=== PATIENT | female | born 1930 | race Caucasian/White ===

== ENCOUNTER 2016-10-18 07:30 | Day surgery (SDC) | payer MEDICARE, OTHER ==
[2014-03-13 17:23] VITALS: BMI 31.2
[2016-10-18] MEDS ORDERED: Lactated Ringer's 500 ML IV SCH (08:45)
[2016-10-18 09:00] LABS: INR 1.2
[2016-10-18] MEDS ORDERED: Propofol 10 mg/ml Inj (20 ML) ONE (09:01)
[2016-10-18] MEDS ORDERED: Lidocaine Hydrochloride 5 ML INJ ONE (09:02)
--- NOTE | 2016-10-18 09:09 | CP.SDSHP ---
Same Day Surgery H & P - History Proposed Procedure: colonoscopy Pre-Op Diagnosis: change in bowels. abdominal pain - Previous Medical/Surgical History Cardiac: Hypertension, Arrhythmia, Other (hyperlipidemia, atrial fibrillation, DVT/PE) Pulmonary: Other (DVT and possible PE 2009) Endocrine/Metabolic: Diabetes Misc: Other (PUD) Previous Surgical History: appendix. LIDIA/BSO - Allergies Allergies: Allergies No Known Allergies Allergy (Verified 10/18/16 07:52) - Physical Exam Vital Signs: Vital Signs 10/18/16 08:15 Temperature 97.0 F L Pulse Rate 80 Respiratory 20 Rate Blood Pressure 150/77 Mental Status: Alert & Oriented x3 Neuro: WNL Heart: Other (irreg-irreg) Lungs: WNL GI: WNL - {Optional Preform as Required} Abdomen: WNL Other Pertinent Findings: PT-INR- 1.2 off Warfarin for 4 days. - Impression Impression: change in bowels. abdominal pain Pt. Evaluated Today:Candidate for Anesthesia & Procedure: Yes - Date & Time Date: 10/18/16 Time: 09:09 Short Stay Discharge - Short Stay Discharge Admitting Diagnosis/Reason for Visit: CHANGE IN BOWEL HABIT, LOWER ABDOMINAL PAIN, CONST Disposition: HOME/ ROUTINE
[2016-10-18 09:46] VITALS: TEMP 96.9
[2016-10-18 10:13] VITALS: O2SAT 99
[2016-10-18 10:23] VITALS: BP 132/55; PULSE 66; RESP 16
== END 2016-10-18 10:22 | disposition home or self-care (01) ==
LOC: C.ENDO 07:30
PROVIDERS: ATTEND Internal Medicine Gastroenterology
DX: D12.7 Benign neoplasm of rectosigmoid junction (principal); K57.30 Diverticulosis of large intestine without perforation or abscess without bleeding; K64.1 Second degree hemorrhoids; R19.4 Change in bowel habit; R10.30 Lower abdominal pain, unspecified
CPT/HCPCS: 36415; 45380; 82948; 85610; 85730; 88305; J2704; J7120

== ENCOUNTER 2016-11-13 09:25 | Emergency (ER) | payer MEDICARE, OTHER ==
[2016-11-13 09:25] VITALS: BMI 31.2
[2016-11-13 09:29] VITALS: RESP 18
[2016-11-13] MEDS ORDERED: Sodium Chloride 0.9% 500 ML IV STA (09:48)
--- NOTE | 2016-11-13 09:48 | C.PDOC ---
History Of Present Illness 86 y/o female sent to ED by Dr Colindres for evaluation of worsening epigastric pain x1 month. Pt states pain is worse after eating. Last colonoscopy done October 18. Never had upper endoscopy. Pt with history of afib and currently on Coumadin. She currently denies fever, chills, chest pain, SOB, nausea, vomiting , diarrhea, back pain or any other complaints. Time Seen by Provider: 11/13/16 09:41 Chief Complaint (Nursing): Abdominal Pain History Per: Patient History/Exam Limitations: no limitations Onset/Duration Of Symptoms: Days Current Symptoms Are (Timing): Worse Context: Food Severity: Moderate Location Of Pain/Discomfort: Epigastric Radiation Of Pain To:: None Quality Of Discomfort: "Pain" Associated Symptoms: denies: Fever, Chills, Vomiting, Diarrhea, Back Pain, Chest Pain Exacerbating Factors: Food Recent travel outside of the [place]: No Past Medical History Reviewed: Historical Data, Nursing Documentation, Vital Signs Vital Signs: Last Vital Signs Temp 97.8 F 11/13/16 13:56 Pulse 88 11/13/16 13:56 Resp 18 11/13/16 13:56 BP 140/90 11/13/16 13:56 Pulse Ox 100 11/13/16 13:56 - Medical History PMH: Anxiety, Arthritis, Asthma, Atrial Fibrillation, CHF, COPD, Dementia, Depression, Diabetes, Fractures (RT WRIST), Gastritis, HTN, Hypercholesterolemia Surgical History: Cholecystectomy, Endoscopy, Pacemaker - [facility] Procedures VACCINATION NEC (02/18/14) Family History: States: Unknown Family Hx - Social History Hx Tobacco Use: No Hx Alcohol Use: No Hx Substance Use: No - Immunization History Hx Tetanus Toxoid Vaccination: No Hx Influenza Vaccination: No Hx Pneumococcal Vaccination: No Review Of Systems Except As Marked, All Systems Reviewed And Found Negative. Constitutional: Negative for: Fever, Chills Cardiovascular: Negative for: Chest Pain Respiratory: Negative for: Shortness of Breath Gastrointestinal: Positive for: Abdominal Pain. Negative for: Nausea, Vomiting , Diarrhea Musculoskeletal: Negative for: Back Pain Physical Exam - Physical Exam Appears: Non-toxic, No Acute Distress Skin: Warm, Dry, No Rash Head: Atraumatic, Normacephalic Oral Mucosa: Moist Neck: Normal, Normal ROM, Supple Chest: Symmetrical Cardiovascular: Rhythm Regular, No Murmur Respiratory: Normal Breath Sounds, No Rales, No Rhonchi, No Wheezing Gastrointestinal/Abdominal: Soft, Tenderness (epigastric), No Guarding, No Rebound Extremity: No Pedal Edema Extremity: Bilateral: Atraumatic Neurological/Psych: Oriented x3, Normal Speech, Normal Cognition ED Course And Treatment - Laboratory Results Result Diagrams: 11/13/16 11:33 11/13/16 11:33 ECG Rhythm: Atrial Fibrillation, Nonspecific Changes Rate From EC O2 Sat by Pulse Oximetry: 97 (room air) Pulse Ox Interpretation: Normal - CT Scan/US US abdomen Other Rad Studies (CT/US): Read By Radiologist, Radiology Report Reviewed CT/US Interpretation: Accession No. : [id number]. Patient Name / ID : MARLYN MEHTA / [id number]. Exam Date : 11/13/2016 10:22:44 ( Approved ). Study Comment : Sex / Age : F / 86Y. Creator : Dayana Harrison MD. Dictator : Dayana Harrison MD. Paper Sorter And Counter : Accounting Bookkeeper : Dayana Harrison MD. Approver2 : Report Date : 11/13/2016 11:13:01. My Comment : . HISTORY: epigastric pain. COMPARISON: None. TECHNIQUE: Grayscale imaging was performed. FINDINGS: LIVER: Measures 14.0 cm in length. Normal echogenicity of the liver parenchyma. No mass. No intrahepatic bile duct dilatation. GALLBLADDER: There are no gallstones, wall thickening or pericholecystic fluid. The sonographic Coelho's sign is negative. COMMON BILE DUCT: Measures 3.0 mm. No stones. No dilatation. PANCREAS: Unremarkable as visualized. No mass. No ductal dilatation. RIGHT KIDNEY: Measures 9.4 cm in length. Normal echogenicity. No calculus, mass, or hydronephrosis. There is a 1.8 x 1.6 x 1.6 cm simple cyst in the upper pole and 1.0 x 0.8 x 1.0 cm simple cyst in the lower pole. AORTA: No aneurysmal dilatation. IVC: Unremarkable. OTHER FINDINGS: None . IMPRESSION: No evidence of cholelithiasis or acute cholecystitis. Progress Note: Plan: labs, US abd, UA, fluids, pepcid. Reassess (Abdominal Pain): Patient is resting comfortably, abdomen remains soft, and patient is tolerating PO. Case was d/w patient's GI who will seen patient in his office. Patient feels comfortable going home. Patient will be discharged home. Disposition - Disposition Referrals: Hima Santillan MD [Staff Provider] - Disposition: HOME/ ROUTINE Disposition Time: 13:41 Condition: STABLE Additional Instructions: Follow up with your PMD and Service Station Cashier within 1-2 days. Return to ED if feel worse. Prescriptions: Nitrofurantoin Macrocrystals [Macrobid] 1 cap PO BID #14 cap Famotidine [Pepcid] 20 mg PO BID #20 tab Instructions: Epigastric Pain (ED) Print Language: CYPRIOT - Clinical Impression Clinical Impression: Epigastric pain - PA / REVERBERATORY FURNACE OPERATOR / Resident Statement MD/DO has reviewed & agrees with the documentation as recorded. - Scribe Statement The provider has reviewed the documentation as recorded by the Mj Guaman All medical record entries made by the Mj were at my direction and personally dictated by me. I have reviewed the chart and agree that the record accurately reflects my personal performance of the history, physical exam, medical decision making, and the department course for this patient. I have also personally directed, reviewed, and agree with the discharge instructions and disposition.
[2016-11-13] MEDS ORDERED: Sodium Chloride 0.9% 1,000 ML ONE (10:13)
[2016-11-13 10:43] LABS: SQUAMOUS EPITHIAL 1 /hpf (0-5); URINE BACTERIA RARE (<OCC); URINE BILIRUBIN NEGATIVE (NEGATIVE); URINE BLOOD NEGATIVE (NEGATIVE); URINE CLARITY Clear (Clear); URINE COLOR Yellow (YELLOW); URINE GLUCOSE (UA) NORMAL (Normal); URINE LEUKOCYTE ESTERASE 2+ Leu/uL (Negative); URINE NITRATE NEGATIVE (NEGATIVE); URINE PROTEIN NEGATIVE (NEGATIVE); URINE UROBILINOGEN NORMAL mg/dL (0.2-1.0)
--- NOTE | 2016-11-13 11:14 | US ---
HISTORY: epigastric pain COMPARISON: None. TECHNIQUE: Grayscale imaging was performed. FINDINGS: LIVER: Measures 14.0 cm in length. Normal echogenicity of the liver parenchyma. No mass. No intrahepatic bile duct dilatation. GALLBLADDER: There are no gallstones, wall thickening or pericholecystic fluid. The sonographic Coelho's sign is negative. COMMON BILE DUCT: Measures 3.0 mm. No stones. No dilatation. PANCREAS: Unremarkable as visualized. No mass. No ductal dilatation. RIGHT KIDNEY: Measures 9.4 cm in length. Normal echogenicity. No calculus, mass, or hydronephrosis. There is a 1.8 x 1.6 x 1.6 cm simple cyst in the upper pole and 1.0 x 0.8 x 1.0 cm simple cyst in the lower pole. AORTA: No aneurysmal dilatation. IVC: Unremarkable. OTHER FINDINGS: None . IMPRESSION: No evidence of cholelithiasis or acute cholecystitis.
[2016-11-13 11:43] LABS: BASO # 0.1 K/uL (0.0-0.2); BASO % 1.4 % (0.0-2.0); EOS # 0.3 K/uL (0.0-0.7); EOS % 3.3 % (0.0-4.0); HEMOGLOBIN 12.2 g/dL (11.0-16.0); LYMPH % 28.9 % (20.0-40.0); MEAN CELL VOLUME 92.6 fL (81.0-99.0); MEAN CORPUSCULAR HEMOGLOBIN 31.1 pg (27.0-31.0); MEAN CORPUSCULAR HGB CONC 33.6 g/dL (33.0-37.0); MEAN PLATELET VOLUME 10.1 fL (7.2-11.7); MONO # 0.5 K/uL (0.0-0.8); MONO % 4.6 % (0.0-10.0); NEUT # 6.4 K/uL (1.8-7.0); NEUT % 61.8 % (50.0-75.0); NRBC % 0.1 % (0.0-2.0); RBC 3.93 Mil/uL (3.80-5.20); RED CELL DISTRIBUTION WIDTH 16.1 % (11.5-14.5); WHITE BLOOD COUNT 10.3 K/uL (4.8-10.8)
[2016-11-13 11:49] LABS: AMYLASE 100 U/L (30-110); INR 1.7; LIPASE 85 U/L (23-300)
[2016-11-13 11:51] LABS: PROTHROMBIN TIME 19.9 SECONDS (9.7-12.2)
[2016-11-13 11:59] LABS: CK-MB 1.33 ng/mL (0.0-3.38)
[2016-11-13 12:22] LABS: ALBUMIN 4.1 g/dL (3.5-5.0)
[2016-11-13 12:24] LABS: GFR AFRICAN-AMERICAN > 60; GFR NON-AFRICAN AMERICAN > 60
[2016-11-13 12:25] LABS: ALB/GLOB RATIO 1.2 (1.0-2.1); ALT/SGPT 23 U/L (9-52); AST/SGOT 24 U/L (14-36); BLOOD UREA NITROGEN 11 mg/dL (7-17)
[2016-11-13 12:26] LABS: CALCIUM 9.1 mg/dl (8.6-10.4)
[2016-11-13 13:57] VITALS: BP 140/90; PULSE 88; TEMP 97.8
[2016-11-13 19:20] VITALS: O2SAT 97
--- NOTE | 2016-11-15 09:07 | CARD ---
APPROVED REPORT EKG Measurement Heart [id number] <Conclusion> Atrial fibrillation with a competing junctional pacemaker Nonspecific ST and T wave abnormality Abnormal ECG
== END 2016-11-13 13:56 | disposition home or self-care (01) ==
LOC: C.ER 09:25
DX: R10.13 Epigastric pain (principal); E11.9 Type 2 diabetes mellitus without complications; I10 Essential (primary) hypertension; I48.91 Unspecified atrial fibrillation; J44.9 Chronic obstructive pulmonary disease, unspecified; J45.909 Unspecified asthma, uncomplicated; E78.00 Pure hypercholesterolemia, unspecified
CPT/HCPCS: 76705; 80053; 81001; 82150; 82550; 82553; 82948; 83690; 84484; 85025; 85610; 85730; 96374; 99285; J7040

== ENCOUNTER 2016-11-29 07:13 | Day surgery (SDC) | payer MEDICARE, OTHER | END 2016-11-29 11:35 | disposition home or self-care (01) | LOC: C.ENDO 07:13 ==